=== PATIENT | female | born 1955 | race Caucasian/White ===

== ENCOUNTER → 2017-06-18 | Outpatient (CLI) | payer OTHER ==
--- NOTE | 2017-06-18 16:08 | US ---
EXAMINATION TYPE: US kidneys/renal and bladder DATE OF EXAM: 06/18/2017 COMPARISON: NONE CLINICAL HISTORY: 61-year-old female Gross Hematuria R31.9. History of renal stones TECHNIQUE: Multiple sonographic images of the kidneys and bladder were obtained. FINDINGS: Right Kidney: 10.8 x 5.2 x 5.2 cm with mild hydronephrosis and suggestion of a 1.1 cm shadowing calc ulus in the mid renal collecting system. Left Kidney: 10.0 x 4.3 x 4.5 cm without hydronephrosis. Limited visualization of the lower pole due to shadowing from bowel gas. No gross abnormality of the urinary bladder. The right ureteral jet is smaller than the left. IMPRESSION: 1. Mild hydronephrosis on the right may be secondary to a 1.1 cm calculus in the mid renal collecting system. The right ureteral jet is smaller than the left. 2. No hydronephrosis on the left.
== END | disposition home or self-care (01) ==
LOC: RADUSWWP 15:07
PROVIDERS: ATTEND Urology
DX: N13.30 Unspecified hydronephrosis (principal); Z96.0 Presence of urogenital implants
CPT/HCPCS: 76770

== ENCOUNTER → 2017-06-28 | Outpatient (CLI) | payer OTHER ==
--- NOTE | 2017-06-28 14:19 | CT ---
EXAMINATION TYPE: CT abdomen wo con DATE OF EXAM: 06/28/2017 COMPARISON: NONE HISTORY: Hematuria CT DLP: 454 mGycm Automated exposure control for dose reduction was used. TECHNIQUE: Helical acquisition of images was performed from the lung bases through the top of iliac crest to include entire abdomen. Lack of intravenous contrast limits evaluation of the solid viscera. Lack of oral contrast limits evaluation of the hollow viscera. CONTRAST: Performed without Oral Contrast and without IV contrast. FINDINGS: LUNG BASES: No significant abnormality is appreciated. LIVER/GB: Numerous low-density hepatic cysts are scattered throughout the hepatic parenchyma with the largest seen in the left lobe in segment 2 measuring 1.8 x 1.7 cm. Numerous of these are able to be characterized as hepatic cysts, however the subcentimeter lesions are too small to accurately charact erize. PANCREAS: No significant abnormality is seen. SPLEEN: No significant abnormality is seen. ADRENALS: No significant abnormality is seen. KIDNEYS: There is an obstructing calculus at the right ureteropelvic junction measuring 1.3 x 0.7 cm creating moderate right hydronephrosis. Calcification is seen within an inferior major calyx measurin g approximately 0.8 cm as well as punctate nonobstructing calculus at the mid pole of the right kidne y measuring 2 mm. Fat stranding is present around the right proximal ureter and mid pole calyces and may represent calyceal rupture. 6 mm right renal cyst is identified as well as scattered areas of hypoattenuation within the right re nal parenchyma that are subcentimeter and too small to accurately characterize. Additionally within t he posterior left superior pole there is a fluid attenuated 1.1 cm cyst. 2 punctate (1 to 2 mm) left lower pole renal calculi are seen as well as upper pole 4 mm and 2 mm calculi. Exophytic left upper p ole approximately 8 mm renal cyst is also seen. BOWEL: The appendix is partially visualized and within normal limits of size. LYMPH NODES: No significant abnormality is appreciated. OSSEOUS STRUCTURES: Mild to moderate degenerative changes of the visualized thoracolumbar spine are d isplayed as intervertebral disc space narrowing, vacuum disc disease, endplate sclerosis, facet arthr opathy and anterior osteophytes. At least large broad-based disc bulge if not disc herniation is seen at L4-L5 creating at least mild spinal canal stenosis. Slight levoscoliotic curvature is seen of the lumbar spine. FREE AIR: No free air is visualized. IMPRESSION: 1. OBSTRUCTING CALCULUS AT THE RIGHT URETEROPELVIC JUNCTION MEASURING 1.3 X 0.7 CM CREATING MODERATE RIGHT HYDRONEPHROSIS WITH FAT STRANDING SURROUNDING THE CENTRAL MAJOR AND MINOR CALYCES, POSSIBLY REL ATING TO CALYCEAL RUPTURE FROM INCREASED PRESSURE. 2. BILATERAL NONOBSTRUCTING RENAL CALCULI, SIMPLE RENAL CYSTS, AND RENAL LESIONS THAT ARE TOO SMALL T O ACCURATELY CHARACTERIZE. 3. NUMEROUS HEPATIC CYSTS AND SMALLER SUBCENTIMETER HEPATIC LESIONS THAT ARE TOO SMALL TO ACCURATELY CHARACTERIZE. 4. MILD TO MODERATE DEGENERATIVE CHANGES OF THE THORACOLUMBAR SPINE WITH AT LEAST BROAD-BASED DISC BU LGE AND POSSIBLE DISC HERNIATION AT L4-L5 CREATING AT LEAST MILD SPINAL CANAL STENOSIS. MRI COULD BE PERFORMED OF THE LUMBAR SPINE IF CLINICALLY INDICATED FOR FURTHER EVALUATION. A Kay message has been communicated to Frank Batres MD via the [email or web address] system on 06/28/2017 2:17 PM, Message ID [id number].
== END | disposition home or self-care (01) ==
LOC: RADCTMAIN 13:40
PROVIDERS: ATTEND Urology
DX: N13.2 Hydronephrosis with renal and ureteral calculous obstruction (principal); N28.1 Cyst of kidney, acquired; K76.89 Other specified diseases of liver; Z88.1 Allergy status to other antibiotic agents
CPT/HCPCS: 74150

== ENCOUNTER → 2017-08-16 | Outpatient (CLI) | payer OTHER ==
--- NOTE | 2017-08-17 08:49 | XR ---
Scoliosis survey HISTORY: Scoliosis, low back pain 2 views of the thoracic lumbar spine submitted on a total of [address] abdomen Bone mineralization is reduced. Loss of disc height present at the intervertebral levels L2-3, L3-4, L4-5, there is associated vacuum phenomenon and endplate sclerosis, multilevel spondylosis. Sclerosis present in the posterior elements. Thoracic and lumbar vertebral bodies show preserved height and al ignment. There is a levoscoliosis centered at L2 corresponding to approximately 11 degrees convex lef t. Thoracic spinal curvature is convex right centered at approximately T10 also corresponding to appr oximately 11 degrees. The heart may be enlarged. There is an oval calcification in the right paraspinal location at approxi mately the L4 level measuring 15 mm representing a right-sided renal pelvic stone. IMPRESSION: S-shaped thoracic lumbar scoliosis. Degenerative disc disease and facet arthropathy. Righ t-sided nephrolithiasis. Cardiomegaly.
== END | disposition home or self-care (01) ==
LOC: RADXRYALE 15:48
PROVIDERS: ATTEND Nurse Practitioner Family
DX: M41.9 Scoliosis, unspecified (principal); M51.35 Other intervertebral disc degeneration, thoracolumbar region; M46.85 Other specified inflammatory spondylopathies, thoracolumbar region
CPT/HCPCS: 72082

== ENCOUNTER → 2017-08-30 | Outpatient (CLI) | payer OTHER | END | disposition home or self-care (01) | LOC: LABPAT 14:18 | PROVIDERS: ATTEND Orthopaedic Surgery | DX: Z01.812 Encounter for preprocedural laboratory examination (principal) | CPT/HCPCS: 87070 ==

== ENCOUNTER → 2017-12-12 | Outpatient (CLI) | payer OTHER | END | disposition home or self-care (01) | LOC: LABPAT 13:50 | PROVIDERS: ATTEND Orthopaedic Surgery | DX: Z01.812 Encounter for preprocedural laboratory examination (principal) | CPT/HCPCS: 87070 ==

== ENCOUNTER → 2017-12-17 | Outpatient (CLI) | payer OTHER ==
[2017-12-17 12:03] LABS: HCT 36.1 % (34.0-46.0); HGB 11.3 gm/dL (11.4-16.0); Hypochromasia Slight; MCHC 31.3 g/dL (31.0-37.0); Mean Platelet Volume 7.5; Platelet Count 342 k/uL (150-450); RBC 4.35 m/uL (3.80-5.40); RDW 14.8 % (11.5-15.5); WBC 6.3 k/uL (3.8-10.6)
[2017-12-17 12:08] LABS: Appearance,Urine Cloudy (Clear); Bacteria,Urine Occasional /hpf; Bilirubin,Urine Negative (Negative); Blood,Urine Negative (Negative); Color,Urine Yellow; Glucose,Urine (UA) Negative (Negative); Ketones,Urine Negative (Negative); Leukocyte Esterase,Urine Small (Negative); Mucus,Urine Occasional /hpf; Nitrite,Urine Negative (Negative); Protein,Urine Trace (Negative); RBC,Urine 7 /hpf (0-5); Specific Gravity,Urine 1.021 (1.001-1.035); Squamous Epithelial Cell,Urine 12 /hpf (0-4); Urobilinogen,Urine <2.0 mg/dL (<2.0); WBC,Urine 11 /hpf (0-5)
[2017-12-17 12:12] LABS: Partial Thromboplastin Time 24.8 sec (22.0-30.0); Prothrombin Time 10.1 sec (9.0-12.0)
[2017-12-17 12:18] LABS: ALT 25 U/L (9-52); AST 27 U/L (14-36); Albumin 4.8 g/dL (3.5-5.0); Alkaline Phosphatase 97 U/L (38-126); Anion Gap 13 mmol/L; Blood Urea Nitrogen 16 mg/dL (7-17); Calcium 9.6 mg/dL (8.4-10.2); Carbon Dioxide 24 mmol/L (22-30); Chloride 106 mmol/L (98-107); Glucose 100 mg/dL (74-99); Potassium 4.1 mmol/L (3.5-5.1); Sodium 143 mmol/L (137-145); Total Bilirubin 0.7 mg/dL (0.2-1.3); Total Protein 7.8 g/dL (6.3-8.2)
== END | disposition home or self-care (01) ==
LOC: LABPAT 11:22
PROVIDERS: ATTEND Orthopaedic Surgery
DX: Z01.812 Encounter for preprocedural laboratory examination (principal)
CPT/HCPCS: 36415; 80053; 81001; 85027; 85610; 85730

== ENCOUNTER → 2017-12-17 | Outpatient (CLI) | payer OTHER ==
[2017-12-17 15:39] LABS: T4, Free (Free Thyroxine) 1.57 ng/dL (0.78-2.19)
== END | disposition home or self-care (01) ==
LOC: LABWHC1 11:20
PROVIDERS: ATTEND Nurse Practitioner Family
DX: E03.9 Hypothyroidism, unspecified (principal)
CPT/HCPCS: 36415; 84439; 84443

== ENCOUNTER 2017-12-25 05:47 | Inpatient (IN) | payer OTHER ==
[2017-12-17 10:11] VITALS: BMI 23.1
[~2017-12-25 05:47] MED LIST: ACETAMINOPHEN TAB 500 MG TAB PO ONE; DEXAMETHASONE SOD PHOSPHATE 10 MG/ML 1 ML VIAL IV ONE; LIDOCAINE 1% 20 ML VIAL (10MG/ML) FOR IV START INTRADERMA PRN; MELOXICAM 7.5 MG TAB PO ONE; MIDAZOLAM 2 MG/2 ML VIAL IV PRN; ONDANSETRON 4 MG/2 ML VIAL IVP ONE; ROPIVACAINE 246.25 MG, EPINEPHrine 0.5 MG, KETOROLAC 30 MG, cloNIDine HCL/PF 80 MCG, WA... MISCELLANE ONE; SCOPOLAMINE 1.5MG/72HR PATCH TRANSDERM ONE; TRANEXAMIC ACID 1,000 MG in SODIUM CHLORIDE 0.9% 50 ML IVPB ONE; ceFAZolin IN SWFI 2 GM/20 ML SYRINGE IVP ONE
[2017-12-25] MEDS: LACTATED RINGERS 1,000 ML IV SCH (06:54)
[2017-12-25] MEDS ORDERED: SODIUM CHLORIDE 0.9% 100 ML BAG ONE (06:59)
[2017-12-25] MEDS ORDERED: MIDAZOLAM 2 MG/2 ML VIAL ONE (06:59)
[2017-12-25] MEDS ORDERED: ceFAZolin 3,000 MG in SODIUM CHLORIDE 0.9% IRRIGATIO 3,000 ML IRRIGATION ONE (06:59)
[2017-12-25] MEDS ORDERED: GLYCOPYRROLATE 0.2 MG/ML 2 ML VIAL ONE (06:59)
[2017-12-25] MEDS ORDERED: TRANEXAMIC ACID 1,000 MG/10 ML VIAL ONE (06:59)
[2017-12-25] MEDS ORDERED: SUCCINYLCHOLINE CHLORIDE 100 MG/5 ML SYR IV ONE (06:59)
[2017-12-25] MEDS ORDERED: NEOSTIGMINE 1 MG/ML 10 ML VIAL ONE (06:59)
[2017-12-25] MEDS ORDERED: fentaNYL (PF) 50 MCG/ML 2 ML AMP ONE (06:59)
[2017-12-25] MEDS ORDERED: PROPOFOL 10 MG/ML 20 ML VIAL IV ONE (06:59)
[2017-12-25] MEDS ORDERED: LIDOCAINE 1% INJ 10MG/ML (20 ML MDV) ONE (06:59)
[2017-12-25] MEDS ORDERED: ROCURONIUM BROMIDE 10 MG/ML 10 ML VIAL IV ONE (06:59)
[2017-12-25] MEDS ORDERED: ONDANSETRON 4 MG/2 ML VIAL IVP PRN (07:01)
[2017-12-25] MEDS ORDERED: NALOXONE 0.4 MG/ML 1 ML VIAL IV PRN (07:01)
[2017-12-25] MEDS ORDERED: DIAZEPAM 5 MG TAB PO PRN ×2 (07:01)
[2017-12-25] MEDS ORDERED: MAGNESIUM HYDROXIDE 2,400 MG/10 ML CUP PO PRN (07:01)
[2017-12-25] MEDS ORDERED: MORPHINE SULFATE/PF 10MG/10ML VL IVP PRN ×3 (07:01)
[2017-12-25] MEDS ORDERED: HYDROcodone/APAP 5-325MG 1 EACH TAB PO PRN (07:01)
[2017-12-25] MEDS ORDERED: hydrOXYzine PAMOATE 25 MG CAP PO PRN (07:01)
--- NOTE | 2017-12-25 08:28 | P.OP ---
Date of Procedure: 12/25/17 Preoperative Diagnosis: Severe osteoarthritis right hip Postoperative Diagnosis: Severe osteoarthritis right hip Procedure(s) Performed: Right total hip arthroplasty with a direct anterior approach Implants: Das and nephew Polarstem size 2 standard Das [employer] Nephew R3, 3 hole acetabular shell, 48 mm Das [employer] Nephew reflection 6.5 mm cancellus screw, 20 mm 2 Das [employer] Nephew R3, XLPE 20 acetabular liner Das & Nephew Oxinium femoral head 32 m, +0 All components were press-fit. The articulation is Oxinium on polyethylene. Anesthesia: spinal Surgeon: Marquez Grewal Pail Tester #1: Octavia Liang Estimated Blood Loss (ml): 200 (66 mL returned with Cell Saver) Pathology: other (Femoral head) Condition: stable Disposition: PACU Indications for Procedure: After failure of conservative treatment we discussed the surgical and nonsurgical treatment options at length. Patient wishes to proceed with a total hip arthroplasty with a direct anterior approach. Complications specific to this procedure were discussed at length, including but not limited to infection, leg length discrepancy, dislocation, and nerve injury. Patient is aware of all these complications and informed consent was obtained Operative Findings: The operative findings are consistent with severe osteoarthritis of the right hip Description of Procedure: Patient was seen and evaluated in the preoperative area, consent was reviewed, and the surgical site was marked with a skin marker. Patient was then brought to the operating room and given prophylactic antibiotics intravenously. 1 g of Tranexamic acid was also given. A spinal anesthetic was administered by the anesthesia department. The patient was then placed on the [place] table with the bony prominences well-padded. The hip area was then prepped and draped in usual sterile fashion. A universal timeout was then performed, which confirmed the patient's name, surgical site, ALLERGIES, and procedure being performed. Next the incision site was located at 1 cm distal and 1 cm lateral to the anterior superior iliac spine. The skin and subcutaneous tissues were sharply incised. Incision was carefully dissected down to the fascia overlying the tensor fascia judy muscle. This fascia was then incised in line with the incision. Next, using blunt finger dissection, the tensor fascia judy muscle was dissected off its investing fascia. The muscle was then carefully retracted laterally with a cobra retractor over the lateral neck of the femur. Next, the circumflex vessels were identified and cauterized using the AquaMantis device. The anterior hip capsule was then exposed. The capsule was then opened and an inverted T fashion. Cobra retractors were then placed intracapsularly. The proximal femur was then visualized. The femoral neck was then osteotomized appropriate level above the lesser trochanter. Small amount of traction was placed with the [place] table. A small wedge of bone was then removed from the remaining femoral head. Next, using a corkscrew femoral head was easily removed from the acetabulum. On gross visual inspection, the femoral head had complete loss of articular cartilage in multiple periarticular osteophytes. Attention was then turned to the acetabulum. the acetabulum was exposed and any remaining labrum was excised. Sequential reaming of the acetabulum was performed using fluoroscopic guidance. When the appropriate size was reached, a trial was then placed. The position and fit of the trial was checked with fluoroscopy. The trial was then removed. Then, using fluoroscopic guidance, the final implant was impacted at 20 of anteversion and 40 of abduction, and fully seated in the acetabulum. 2 screws were then placed in the acetabulum. Again fluoroscopy was used to check position of the screws. Next, the liner was then impacted, with a 20 elevated liner located in the anterior superior quadrant. Component locking was confirmed. Attention was then directed to the femur. With the aid of the [place] table, the femur was externally rotated to approximately 130, extended, and abducted under the opposite leg. A side hook was then placed under the proximal femur, and the side hook elevator was used to elevate the proximal femur. Retractors were then placed. A capsular release was performed, as well as a release of the conjoined tendon, which afforded excellent visualization of the proximal femur. Next, a box osteotome was used to lateralize the proximal femur. A hand spray operator was then used to locate the femoral canal. Sequential broaching was then performed with appropriate size which afforded excellent fixation in the proximal femur. A trial was then placed with appropriate head and neck, and the hip was gently reduced with the aid of the [place] table. Fluoroscopy was then used to check position of the components, as well as to ensure equal leg lengths. The hip was then gently dislocated and the trials were then removed. Final implants were then impacted and the hip was again reduced. Final fluoroscopic x-rays confirmed that the components were in anatomic position, as well as equal leg lengths. The hip was also taken through range of motion, and found to be stable. The hip was then copiously irrigated with antibiotic solution with pulsatile lavage. The hip was then irrigated with Irrisept solution. The soft tissues were then injected with a ropivacaine solution, which consisted of 246.25 mg of ropivacaine, 0.5 mg of epinephrine, 30 mg of Toradol, 80 g of clonidine, and 48.45 mL of sterile water, for a total of 100 mL of fluid injected. A second dose of 1 g of Tranexamic acid was also given. the fascia was then closed with 2-0 strata fix suture. The subcutaneous tissue was closed with 3-0 Vicryl. The subcuticular tissue was closed with 3-0 strata fix suture. The skin was then closed with Dermabond glue and a sterile silver dressing. The patient was then transferred to the recovery room in stable condition. The automotive service assistant KAREN Mena was required due to the complexity of surgery, and the need for skilled surgical coder for positioning, draping, exposure, retraction, and closure of the wound.
--- NOTE | 2017-12-25 08:44 | XR ---
EXAMINATION TYPE: XR Hip Limited RT DATE OF EXAM: 12/25/2017 COMPARISON: NONE HISTORY: Postop TECHNIQUE: One view submitted. FINDINGS: There is a prosthetic hip in near anatomic alignment. There is soft tissue edema and emphysema. IMPRESSION: 1. Postoperative change. Appears in near-anatomic alignment.
[2017-12-25] MEDS ORDERED: fentaNYL (PF) 50 MCG/ML 2 ML AMP IVP ONE ×4 (08:55→10:59)
[2017-12-25] MEDS ORDERED: MEPERIDINE 50 MG/ML SYRINGE IVP ONE ×2 (09:14→09:19)
--- NOTE | 2017-12-25 09:18 | XR ---
EXAMINATION TYPE: XR Hip Limited RT DATE OF EXAM: 12/25/2017 COMPARISON: NONE HISTORY: Postop hip surgery TECHNIQUE: One view submitted. FINDINGS: There is a prosthetic hip in near anatomic alignment. There is soft tissue edema and emphysema. IMPRESSION: 1. Postoperative change. Appears in near-anatomic alignment.
[2017-12-25] MEDS ORDERED: ONDANSETRON 4 MG/2 ML VIAL IVP ONE (10:54)
[2017-12-25] MEDS: SODIUM CHLORIDE 0.9% 1,000 ML IV SCH ×2 (17:08→23:49)
[2017-12-25] MEDS: ASPIRIN 325 MG TAB PO SCH ×2 (17:09→20:22)
[2017-12-25] MEDS: HYDROcodone/APAP 5-325MG 1 EACH TAB PO PRN (17:13)
[2017-12-25] MEDS: ceFAZolin IN SWFI 2 GM/20 ML SYRINGE IVP SCH ×2 (17:14→23:50)
--- NOTE | 2017-12-25 18:27 | FL ---
Fluoroscopy HISTORY: Right hip arthroplasty 45 seconds fluoroscopy time supplied to the referring clinician. 2 intraoperative C-arm images docum ent the procedure. See dictated report from orthopedic surgery.
[2017-12-25] MEDS: SENNOSIDES-DOCUSATE SODIUM 1 EACH TAB PO SCH (20:22)
[2017-12-25] MEDS: CITALOPRAM HYDROBROMIDE 20 MG TAB PO SCH (22:35)
[2017-12-26] MEDS: HYDROcodone/APAP 5-325MG 1 EACH TAB PO PRN ×4 (02:53→22:26)
[2017-12-26] MEDS: LACTATED RINGERS 1,000 ML IV SCH (06:13)
[2017-12-26] MEDS: LEVOTHYROXINE 75 MCG TAB PO SCH (07:03)
[2017-12-26 07:52] LABS: Basophils % (A) 0 %; Eosinophils % (A) 0 %; HCT 26.6 % (34.0-46.0); Lymphocytes # (A) 1.8 k/uL (1.0-4.8); Lymphocytes % (A) 22 %; MCH 26.3 pg (25.0-35.0); MCHC 32.3 g/dL (31.0-37.0); MCV 81.4 fL (80.0-100.0); Mean Platelet Volume 7.4; Monocytes # (A) 0.8 k/uL (0-1.0); Monocytes % (A) 10 %; Neutrophils # (A) 5.5 k/uL (1.3-7.7); Neutrophils % (A) 66 %; Platelet Count 246 k/uL (150-450); RBC 3.27 m/uL (3.80-5.40); RDW 15.5 % (11.5-15.5); WBC 8.3 k/uL (3.8-10.6)
[2017-12-26 08:01] LABS: HGB 8.6 gm/dL (11.4-16.0)
[2017-12-26] MEDS: ASPIRIN 325 MG TAB PO SCH ×2 (08:08→20:11)
[2017-12-26] MEDS: MELOXICAM 7.5 MG TAB PO SCH (08:09)
--- NOTE | 2017-12-26 09:40 | P.DS ---
Providers Date of admission: 12/25/17 05:47 Expected date of discharge: 12/26/17 Attending physician: Marquez Grewal Consults: 12/25/17 07:01 Consult Physician Routine Consulting Provider: Kit Oh Consult Reason/Comments: medical management Do you want consulting provider notified?: Yes Primary care physician: Antwan Lopez - Discharge Diagnosis(es) (1) Primary osteoarthritis of right hip Current Visit: Yes Status: Acute (2) S/P total hip arthroplasty Current Visit: No Status: Acute Hospital Course: This is a 62-year-old female with known history of degenerative arthritis of the right hip. The patient presents for evaluation. After discussion and consideration patient elects to proceed with total hip arthroplasty. The patient is seen preoperatively by Dr. Grewal and medically cleared for surgery by their primary care physician. Patient is admitted to [facility] on 12/25/2017 for total hip arthroplasty. The procedures performed without complication or sequelae. The patient is doing well postoperatively. Labs and vital signs are stable on day of discharge. On day of discharge patient's hip incision is healing well. There is minimal erythema. There is no drainage noted at this time. There is minimal soft tissue swelling to the hip and thigh. Patient has full foot and ankle motion without difficulty or pain. Neurovascular status to the right lower extremity is intact. Patient is discharged home in good condition. Please see med rec for accurate list of home medications. Plan - Discharge Summary Discharge Rx Participant: Yes New Discharge Prescriptions: New Aspirin 325 mg PO BID #60 tab Sennosides [Senokot] 1 tab PO BID #60 tablet Ondansetron Odt [Zofran Odt] 1 - 2 tab PO Q8HR PRN #21 tab PRN Reason: Nausea HYDROcodone/APAP 5-325MG [Uvalda 5-325] 1 - 2 tab PO Q4-6H PRN #90 tab PRN Reason: Pain No Action Citalopram Hydrobromide [CeleXA] 20 mg PO HS Levothyroxine Sodium [Synthroid] 75 mcg PO DAILY Diclofenac Sodium [Voltaren] 75 mg PO BID Discharge Medication List Citalopram Hydrobromide [CeleXA] 20 mg PO HS 09/06/17 [History] Diclofenac Sodium [Voltaren] 75 mg PO BID 09/06/17 [History] Levothyroxine Sodium [Synthroid] 75 mcg PO DAILY 09/06/17 [History] Aspirin 325 mg PO BID #60 tab 12/26/17 [Rx] HYDROcodone/APAP 5-325MG [Uvalda 5-325] 1 - 2 tab PO Q4-6H PRN #90 tab 12/26/17 [ Rx] Ondansetron Odt [Zofran Odt] 1 - 2 tab PO Q8HR PRN #21 tab 12/26/17 [Rx] Sennosides [Senokot] 1 tab PO BID #60 tablet 12/26/17 [Rx] Follow up Appointment(s)/Referral(s): Antwan Lopez MD [Primary Care Provider] - 1 Week Marquez Grewal DO [Doctor of Osteopathic Medicine] - 2 Weeks Activity/Diet/Wound Care/Special Instructions: Weightbearing as tolerated with walker Leave dressing intact. Dressing may be removed by home care nurse in 10-14 days. May shower with dressing on. Follow-up with [facility] in 2 weeks, please call with any questions or concerns [phone] Discharge Disposition: HOME WITH HOME HEALTH SERVICES
[2017-12-26] MEDS: SODIUM CHLORIDE 0.9% 1,000 ML IV SCH (11:06)
--- NOTE | 2017-12-26 12:41 | CONS ---
CONSULTATION DATE OF SERVICE: 12/26/2017 REASON FOR CONSULTATION: Medical management requested by Dr. Grewal. CONSULTATION: This is a very pleasant 62-year-old patient of Dr. Lopez. The patient has undergone a right total hip arthroplasty. The pain is reasonably controlled. No nausea, vomiting. Did tolerate her breakfast. Did work with physical therapy. Chronic stable medical conditions include osteoarthritis, hypothyroid, kidney stones, anxiety. REVIEW OF SYSTEMS: CONSTITUTIONAL: None. HEENT: None. RESPIRATORY: None. CARDIOVASCULAR: None. GASTROINTESTINAL: None. GENITOURINARY: None. MUSCULOSKELETAL: Arthritic pain in the joints. DERMATOLOGICAL: None. HEMATOLOGIC: None. LYMPHATIC: None. PSYCHIATRY: Some anxiety. NEUROLOGICAL: None. PAST MEDICAL HISTORY: Past medical history of anxiety, kidney stones, hypothyroid, osteoarthritis. PAST SURGICAL HISTORY: Lithotripsy, frozen section of cervical cancer, dental procedures, left total hip arthroplasty. FAMILY HISTORY: Family history of lung and stomach cancer. HOME MEDICATIONS: 1. Senokot 1 tablet p.o. b.i.d. 2. Zofran 1 to 2 tablets q.8 p.r.n. 3. Synthroid 75 mcg p.o. daily. 4. Poteet 5 one to two tablets q.4 p.r.n. 5. Voltaren 75 p.o. b.i.d. 6. Celexa 20 mg q.h.s. 7. Aspirin for DVT prophylaxis, getting. ALLERGIES: LEVAQUIN and MORPHINE. PHYSICAL EXAMINATION: On examination, temperature 97.2, pulse 72, respirations 16, blood pressure 120/68, pulse ox 97% on room air. GENERAL APPEARANCE: Average built, sitting up on a chair, comfortable. EYES: Pupils equal. Conjunctivae normal. HENT: External appearance of nose and ears normal. Oral cavity normal. NECK: JVD not raised. Mass not palpable. RESPIRATORY: Effort normal. Lungs are clear. CARDIOVASCULAR: First and second sounds normal. No edema. ABDOMEN: Soft, nontender. Liver and spleen not palpable. LYMPHATIC: No lymph nodes palpable in neck or axillae. PSYCHIATRY: Alert and oriented x3. Mood and affect slightly anxious appearing. NEUROLOGICAL: Pupils equal. Cranial nerves grossly intact. Power and sensation grossly intact. MUSCULOSKELETAL: The patient has got a dressing over the operative site. INVESTIGATIONS: White count 8.3, hemoglobin 8.6. ASSESSMENT: 1. Right total hip arthroplasty. 2. Primary osteoarthritis of multiple joints. 3. Hypothyroid. 4. Anxiety, not otherwise specified. PLAN: The patient is doing well. Home medications are resumed. For DVT prophylaxis Dr. Grewal has her on aspirin. Pain is controlled. Care was discussed with the patient. Thank you Dr. Grewal. GILA / NYASIAN: [id number] /
[2017-12-26] MEDS ORDERED: HYDROmorphone 2 MG TAB PO PRN ×2 (15:03→15:04)
[2017-12-26] MEDS ORDERED: HYDROmorphone 4 MG TABLET PO PRN (15:04)
[2017-12-26] MEDS: CITALOPRAM HYDROBROMIDE 20 MG TAB PO SCH (20:11)
[2017-12-26] MEDS: SENNOSIDES-DOCUSATE SODIUM 1 EACH TAB PO SCH (20:11)
[2017-12-27] MEDS: SODIUM CHLORIDE 0.9% 1,000 ML IV SCH ×2 (03:52→08:01)
[2017-12-27] MEDS: HYDROcodone/APAP 5-325MG 1 EACH TAB PO PRN ×2 (06:43→12:07)
[2017-12-27] MEDS: ASPIRIN 325 MG TAB PO SCH (08:00)
[2017-12-27] MEDS: MELOXICAM 7.5 MG TAB PO SCH (08:00)
[2017-12-27] MEDS: LEVOTHYROXINE 75 MCG TAB PO SCH (08:00)
[2017-12-27 14:46] VITALS: BP 144/65; PULSE 86; RESP 20; TEMP 98.6
--- NOTE | 2017-12-28 07:37 | PN ---
PROGRESS NOTE DATE OF SERVICE: 12/27/2017 PRESENTING COMPLAINT: Right hip surgery. INTERVAL HISTORY: Patient is status post right hip surgery. Pain is well controlled. Been out of bed. No nausea, vomiting. Worked with physical therapy. REVIEW OF SYSTEMS: Review of systems done for constitutional, cardiovascular, GI, pulmonary; relevant findings as above. MEDICATIONS: Current medications are reviewed. PHYSICAL EXAMINATION: On examination, temperature 97, pulse 84, respirations 16, blood pressure 125/71, pulse ox 95% on room air. GENERAL APPEARANCE: Sitting up in a chair, comfortable. EYES: Pupils equal. Conjunctivae normal. HENT: External appearance of nose and ears normal. Oral cavity normal. NECK: JVD not raised. Mass not palpable. RESPIRATORY: Effort normal. Lungs are clear. CARDIOVASCULAR: First and second sounds normal. No edema. ABDOMEN: Soft, nontender. Liver and spleen not palpable. PSYCHIATRY: Alert and oriented x3. Mood and affect normal. INVESTIGATIONS: Hemoglobin 8.6. ASSESSMENT: 1. Right total hip arthroplasty. 2. Primary osteoarthritis multiple joints. 3. Hypothyroid. 4. Anxiety, not otherwise specified. PLAN: Care was discussed with the patient. The patient is doing clinically well. Should follow up with the family doctor. MMODL / IJN: [id number] /
== END 2017-12-27 15:20 | disposition home health service (06) | DRG 470 ==
LOC: 2ORMAIN 05:47 → 3SUR 16:13
PROVIDERS: ADMIT Orthopaedic Surgery; ATTEND Orthopaedic Surgery
PROC: 0SR906A Replacement of Right Hip Joint with Oxidized Zirconium on Polyethylene Synthetic Substitute, Uncemented, Open Approach (ICD-10-PCS; principal; 2017-12-25 07:00)
DX: M16.11 Unilateral primary osteoarthritis, right hip (principal); Z96.641 Presence of right artificial hip joint; E03.9 Hypothyroidism, unspecified; F41.9 Anxiety disorder, unspecified; N20.0 Calculus of kidney; Z87.442 Personal history of urinary calculi; Z85.41 Personal history of malignant neoplasm of cervix uteri; Z79.899 Other long term (current) drug therapy; Z88.1 Allergy status to other antibiotic agents; Z88.5 Allergy status to narcotic agent
CPT/HCPCS: 73501; 85025; 86850; 86891; 86900; 86901; 88300

== ENCOUNTER → 2018-05-22 | Outpatient (CLI) | payer OTHER ==
--- NOTE | 2018-05-23 08:39 | MR ---
EXAMINATION TYPE: MR lumbar spine wo con DATE OF EXAM: 05/22/2018 COMPARISON: CT abdomen June 28, 2017 HISTORY: Low back pain per order. Back pain for 9 years going into right buttocks and outer thigh. TECHNIQUE: Multiplanar, multisequence imaging of the lumbar spine is performed without IV contrast. FINDINGS: Survey images redemonstrate dextroconvex positioning in the mid to lower lumbar spine which correlate with CT. There is straightening of lumbar spine on sagittal images redemonstrated. Sagitta l images of the lumbar spine show vertebral body heights to remain satisfactory. Multilevel disc urbano ccation with multilevel moderate to advanced disc space narrowing most prominent L2-L3 and L4-L5 leve ls is redemonstrated. Posterior disc herniations L2-L3 through L4-L5 levels is noted on sagittal imag es. The conus medullaris is normal in position and signal ending mid L1 level. There are Modic type I degenerative changes left L2-L3 level with diminished T1 and increased T2 signal. There is mild to m oderate multilevel anterior spurring redemonstrated. Axial images at the T12-L1 level shows mild broad disc bulge with tiny left paracentral disc protrusi on mildly effacing anterior thecal sac iodine axial image 29, bilateral neural foramina are patent. Axial images at the L1-L2 level are felt within normal limits. Axial images at the L2-L3 level shows moderate broad disc bulge with left paracentral/foraminal disc and right foraminal disc protrusion components. There is effacement of the anterior thecal sac. There is mild to moderate right-sided anterior inferior neural foraminal narrowing. Left-sided neural fora men is patent. Mild bilateral facet arthropathy at this level is present. Axial images at the L3-L4 level show broad disc bulge with central disc protrusion component. There i s effacement of the anterior thecal sac and mild bilateral anterior inferior neural foraminal narrowi ng. Mild facet arthropathy bilaterally at this level is present. Axial images at the L4-L5 level show mild to moderate facet degenerative changes and ligamentum flavu m hypertrophy with mild effacement the posterior lateral thecal sac. There is moderate broad disc bul ge mildly effacing anterior thecal sac. There is mild bilateral anterior inferior neural foraminal na rrowing at this level identified. Axial images at the L5-S1 level show mild facet degenerative changes bilaterally. Spinal canal is pre served. Bilateral neural foramina are patent. A few small simple appearing thin-walled cysts are scattered throughout the visualized liver. There i s 1.3 cm simple appearing cyst centrally in the right kidney axial image 22. Right-sided nephrolithia sis is seen better on CT versus MRI. IMPRESSION: Loss of normal lumbar lordosis with multilevel degenerative changes most prominent mid to lower lumbar levels as detailed above.
== END | disposition home or self-care (01) ==
LOC: RADMRIMAIN 10:46
PROVIDERS: ATTEND Psychiatry & Neurology Neurology
DX: M47.817 Spondylosis without myelopathy or radiculopathy, lumbosacral region (principal); M40.46 Postural lordosis, lumbar region; Z88.1 Allergy status to other antibiotic agents
CPT/HCPCS: 72148

== ENCOUNTER → 2023-08-02 | Outpatient (CLI) | payer MEDICARE, OTHER ==
--- NOTE | 2023-08-02 14:16 | CT ---
EXAMINATION TYPE: CT abdomen pelvis wo con DATE OF EXAM: 08/02/2023 COMPARISON: 06/28/2017 INDICATION: Gross hematuria, Right calculus kidney, hydronephrosis DLP: 626 mGycm, Automated exposure control for dose reduction was used. CONTRAST: 0 mL of Isovue 300. Study performed without Oral Contrast TECHNIQUE: Axial images were obtained from above the diaphragm to the pubic rami in the axial plane a t 5 mm thick sections. Reconstructed images are reviewed on the computer in the coronal plane. FINDINGS: Limited CT sections are obtained the lung bases. The lung bases are clear. CT ABDOMEN: Liver: Multiple hepatic cysts are present. Spleen: Normal Pancreas: Normal Adrenal glands: The adrenal glands are normal. Gallbladder: Normal Kidneys: No renal masses are evident. Renal cysts on the posterior superior left kidney. There is a 0 .4 cm nonobstructing calcification superior pole left kidney. Nonobstructing mid lateral left kidney stone measures 0.5 cm. The mid to inferior pole nonobstructing renal stone measures 0.8 cm. There is a 0.3 cm nonobstructing renal stone mid to inferior pole. A large nonobstructing renal stones at the inferior pole left kidney measuring 1.3 cm. Additional punctate calcifications are adjacent There are numerous small nonobstructing renal stones within the dilated calyx at the superior pole ri ght kidney. Large obstructing renal stones at the ureteropelvic junction measures 1.8 x 1.1 cm. Multi ple nonobstructing renal stones are at the inferior pole right kidney. No hydroureter is evident. Aorta: Normal Inferior vena cava: Normal. CT PELVIS: There is limitation in the lower pelvis due to significant beam hardening artifact from bi lateral hip prostheses. Loops of bowel within the abdomen and pelvis are normal. Studies without oral contrast limiting b owel evaluation. Appendix: Normal as visualized. Urinary bladder: Normal. Genitourinary structures: Uterus appears normal. Adnexa are normal. Osseous structures: No suspicious lytic or sclerotic lesions. Degenerative disc changes are within th e lower lumbar spine IMPRESSION: 1. Obstructing 1.8 x 1.1 cm right ureteropelvic junction stone. Moderate right hydronephrosis is pre sent. 2. Numerous nonobstructing renal stones present bilaterally. These are increasing in size and number from the 2017 comparison. 3. Hepatic cysts.
== END | disposition home or self-care (01) ==
LOC: RADCTMAIN 09:23
PROVIDERS: ATTEND Urology
DX: N13.2 Hydronephrosis with renal and ureteral calculous obstruction (principal); K76.89 Other specified diseases of liver; R31.0 Gross hematuria
CPT/HCPCS: 74176

== ENCOUNTER → 2023-09-04 | Outpatient (CLI) | payer MEDICARE, OTHER ==
[2023-09-04 16:41] LABS: Appearance,Urine Clear (Clear); Bilirubin,Urine Negative (Negative); Blood,Urine Negative (Negative); Color,Urine Yellow (Yellow); Ketones,Urine Trace (Negative); Nitrite,Urine Negative (Negative); PH, Urine 5.5; Specific Gravity,Urine 1.017 (1.001-1.030); Urobilinogen,Urine 0.2 E.U./DL
[2023-09-04 16:45] LABS: Basophils # (A) 0.03 X 10*3/uL (0.00-0.10); Basophils % (A) 0.6 %; Eosinophils # (A) 0.09 X 10*3/uL (0.04-0.35); Eosinophils % (A) 1.7 %; HCT 37.4 % (37.2-46.3); HGB 11.9 g/dL (12.0-15.0); MCH 27.5 pg (27.0-32.0); MCHC 31.8 g/dL (32.0-37.0); MCV 86.6 FL (80.0-97.0); Mean Platelet Volume 10.7 FL (9.5-12.2); Monocytes # (A) 0.39 X 10*3/uL (0.20-1.00); Monocytes % (A) 7.5 %; NRBC Per 100 WBC 0 X 10*3/uL (0.00-0.01); Neutrophils # (A) 3.36 X 10*3/uL (1.80-7.70); Neutrophils % (A) 64.8 %; Platelet Count 286 X 10*3/uL (140-440); RBC 4.32 X 10*6/uL (4.10-5.20); RDW 14.6 % (11.5-14.5); WBC 5.19 X 10*3/uL (4.50-10.00)
[2023-09-04 16:51] LABS: BUN/Creat Ratio 16.43 Ratio (12.00-20.00); Blood Urea Nitrogen 11.5 mg/dL (9.0-27.0); Calcium 9.2 mg/dL (8.7-10.3); Carbon Dioxide 22.6 mmol/L (21.6-31.8); Chloride 106 mmol/L (96-109); Glucose 117 mg/dL (70-110); Sodium 142 mmol/L (135-145)
[2023-09-04 16:58] LABS: Bacteria,Urine None Seen (None Seen); Calcium Oxalate Crystals,Urine Present (None Seen)
== END | disposition home or self-care (01) ==
LOC: LABPAT 11:18
PROVIDERS: ATTEND Urology
DX: Z01.812 Encounter for preprocedural laboratory examination (principal); N20.0 Calculus of kidney; R35.0 Frequency of micturition; R31.29 Other microscopic hematuria
CPT/HCPCS: 80048; 81001; 85025; 86850; 86900; 86901; 87086

== ENCOUNTER 2023-10-09 07:09 | Day surgery (SDC) | payer MEDICARE, OTHER ==
[~2023-10-09 07:09] MED LIST changes: -ACETAMINOPHEN TAB 500 MG TAB PO ONE; -DEXAMETHASONE SOD PHOSPHATE 10 MG/ML 1 ML VIAL IV ONE; +DEXAMETHASONE SOD PHOSPHATE 4 MG/ML 1 ML VIAL IV ONE; +GENTAMICIN 120 MG in SODIUM CHLORIDE 0.9% 100 ML IVPB PRN; -LIDOCAINE 1% 20 ML VIAL (10MG/ML) FOR IV START INTRADERMA PRN; -MELOXICAM 7.5 MG TAB PO ONE; -MIDAZOLAM 2 MG/2 ML VIAL IV PRN; -ROPIVACAINE 246.25 MG, EPINEPHrine 0.5 MG, KETOROLAC 30 MG, cloNIDine HCL/PF 80 MCG, WA... MISCELLANE ONE; -SCOPOLAMINE 1.5MG/72HR PATCH TRANSDERM ONE; -TRANEXAMIC ACID 1,000 MG in SODIUM CHLORIDE 0.9% 50 ML IVPB ONE; -ceFAZolin IN SWFI 2 GM/20 ML SYRINGE IVP ONE; +fentaNYL (PF) 50 MCG/ML 2 ML AMP IV PRN
[2023-10-09] MEDS: LACTATED RINGERS 1,000 ML IV SCH ×2 (07:43→09:13)
[2023-10-09] MEDS ORDERED: ONDANSETRON 4 MG/2 ML VIAL IVP ONE (07:59)
[2023-10-09] MEDS ORDERED: DEXAMETHASONE SOD PHOSPHATE 4 MG/ML 1 ML VIAL IVP ONE (07:59)
[2023-10-09 08:04] VITALS: RESP 16
--- NOTE | 2023-10-09 08:08 | XR ---
EXAMINATION TYPE: XR KUB DATE OF EXAM: 10/09/2023 7:57 AM CLINICAL INDICATION:Female, 68 years old with history of kidney stones; [facility] COMPARISON: CT 08/02/2023 TECHNIQUE: Supine radiographic view/s of the abdomen/pelvis obtained. FINDINGS: The bowel gas pattern is nonspecific, likely nonobstructive without dilated loops of small or large b owel. Fecal material and gas are demonstrated throughout the colon and rectum. Mild/moderate stool bu rden. No gross evidence of organomegaly. No evidence of pneumoperitoneum in the limitations of supine technique. There are multiple calculi projected over both kidneys, the largest likely near the UPJ on the right measures 13 x 11 mm. Largest on the left in the lower pole is 15 x 7 mm. Multiple other smaller calcu li are also present. No definite calculi over the distal ureters or bladder. Osseous structures appear grossly intact. Moderate to severe degenerative changes of the lower lumbar spine with levoscoliosis. Bilateral total hip arthroplasties in place. IMPRESSION: Multiple bilateral renal calculi as described.
--- NOTE | 2023-10-09 08:49 | P.HPIHPCON ---
History of Present Illness H&P Date: 10/09/23 Chief Complaint: Right ureteral stone This is a 68-year-old female history of a 1.6 cm right-sided UPJ stone also evidence of significant lower pole stone burden. Option of right-sided PCNL's discussed with her, She declined. Discussed the alternative of ureteroscopy with holmium laser to address her UPJ stone. Discussed risk of surgery which include but not limited to bleeding, infection, injury to the ureter. Discussed that we'll not be able to remove the lower pole stones at the time ureteroscopy she understood all the risk and agreed to proceed Consent for Procedure: I have explained the operation/procedure to the patient, including the risks, benefits, side effects, alternative therapies (including not receiving the proposed treatment or service), the likelihood of the patient achieving his/her goals, and potential recuperation problems for the procedure/sedation/analgesia, as well as any blood products, if indicated. I also explained to the patient the risks, benefits and side effects of the alternatives, as well as the risks related to not receiving the proposed procedure, care, treatment, or services. Past Medical History Past Medical History: Cancer, Osteoarthritis (OA), Thyroid Disorder Additional Past Medical History / Comment(s): states current kidney stone, 1 episode hematuria, chronic back pain, hx of cervical ca, hx of migraines History of Any Multi-Drug Resistant Organisms: None Reported Past Surgical History: Joint Replacement Additional Past Surgical History / Comment(s): lithotripsy, has had "frozen sections x2 for cervical ca", dental procedures, bilateral hip replacement Past Anesthesia/Blood Transfusion Reactions: No Reported Reaction Smoking Status: Never smoker - Past Family History Father Family Medical History: Cancer Additional Family Medical History / Comment(s): lung, stomach Medications and Allergies Home Medications Medication Instructions Recorded Confirmed Type Diclofenac Sodium [Voltaren] 75 mg PO BID 09/06/17 10/05/23 History Levothyroxine Sodium [Synthroid] 75 mcg PO QAM 09/06/17 10/05/23 History Pregabalin [Lyrica] 75 mg PO HS 09/06/23 10/05/23 History tiZANidine [Zanaflex] 2 mg PO BID 09/06/23 10/05/23 History traMADol HCL 50 mg PO BID 09/06/23 10/05/23 History Allergies Allergy/AdvReac Type Severity Reaction Status Date / Time levofloxacin [From Levaquin] Allergy Unknown Verified 10/09/23 07:34 morphine AdvReac Unknown Verified 10/09/23 07:34 CT Dye Allergy Swelling Uncoded 10/09/23 07:34 Surgical - Exam Vital Signs Temp Pulse Resp BP Pulse Ox 97.3 F L 77 16 193/93 96 10/09/23 07:41 10/09/23 07:41 10/09/23 07:41 10/09/23 07:41 10/09/23 07:41 - General no distress, no pain - Eyes normal ocular movement, no pale - ENT normal nares, normal mucosa - Respiratory normal expansion, normal respiratory effort - Abdomen Abdomen: soft, non tender - Psychiatric oriented to time, oriented to person, oriented to place, speech is normal Assessment and Plan Assessment: OR for right-sided ureteroscopy, holmium laser lithotripsy, stone basketing and stent insertion
[2023-10-09] MEDS ORDERED: fentaNYL (PF) 50 MCG/ML 2 ML AMP ONE (09:13)
[2023-10-09] MEDS ORDERED: MIDAZOLAM 2 MG/2 ML VIAL ONE (09:13)
[2023-10-09] MEDS ORDERED: PROPOFOL 10 MG/ML 20 ML VIAL IV ONE (09:13)
[2023-10-09] MEDS ORDERED: LIDOCAINE 1% INJ 10MG/ML (20 ML MDV) ONE (09:13)
[2023-10-09] MEDS ORDERED: ePHEDrine 50 MG/ML 1 ML VIAL ONE (09:13)
[2023-10-09 11:26] VITALS: TEMP 97
--- NOTE | 2023-10-09 11:40 | P.OP ---
Date of Procedure: 10/09/23 Preoperative Diagnosis: Right ureteral stone Postoperative Diagnosis: Same Procedure(s) Performed: Cystoscopy, right ureteroscopy, holmium laser lithotripsy, stone basketing and stent insertion Implants: 6-Ecuadorean by 24 cm stent in the right ureter Anesthesia: TONYA Surgeon: Davion Escobar Estimated Blood Loss (ml): 5 Pathology: other (right ureteral stone) Condition: stable Disposition: PACU Indications for Procedure: This is a 68-year-old female history of a 1.6 cm right-sided UPJ stone also evidence of significant lower pole stone burden. Option of right-sided PCNL's discussed with her, She declined. Discussed the alternative of ureteroscopy wi th holmium laser to address her UPJ stone. Discussed risk of surgery which include but not limited to bleeding, infection, injury to the ureter. Discussed that we'll not be able to remove the lower pole stones at the time ureteroscopy she understood all the risk and agreed to proceed Operative Findings: Large right-sided UPJ stone, edema around the right ureteral wall at the site of the stone Description of Procedure: Patient brought to the operating room, general anesthesia was induced. She was prepped and draped in sterile fashion and placed in dorsal lithotomy position. Cystoscopy fitted with 21-Ecuadorean sheath was inserted per urethra, cystoscopy was performed which showed no abnormality within the bladder. Attention was then carried to the right ureteral orifice which was intubated with a sensor wire. Next under fluoroscopy 1113 Ecuadorean access sheath was passed over the wire into the proximal ureter. Next a flexible ureteroscope was inserted through the access sheath, ureteroscopy was performed which showed a large stone involving the UPJ. Next using the holmium laser the stone was dusted. Any sizable fragments were removed using the stone basket. Repeat ureteroscopy and renoscopy showed no sizable fragments or injury to the kidney or the ureter. The lower pole kidney stones were not removed. Pullback ureteroscopy was performed showed no injury to the ureter or any ureteral stone. As the ureteroscope was withdrawn, a sensor wire was passed through. Next a ureteral stent was passed over the wire, the proximal curl was visualized on fluoroscopy and the distal curl was visualized using the cystoscope
[2023-10-09 12:15] VITALS: BP 144/87; PULSE 70
--- NOTE | 2023-10-09 15:16 | FL ---
EXAMINATION TYPE: FL guidance operating room DATE OF EXAM: 10/09/2023 Comparison: CT 08/02/2023 Clinical History: 68-year-old female Cysto for Rt kidney stone Findings: Cysto right kidney stone 42 sec fluoro 0.[address] Escobar 4. Images submitted. Impression: Procedural fluoroscopy as above.
== END 2023-10-09 12:20 | disposition home or self-care (01) ==
LOC: OR 07:09
PROVIDERS: ATTEND Urology
DX: N20.1 Calculus of ureter (principal); Z87.442 Personal history of urinary calculi
CPT/HCPCS: 52356; 82365; 74018; C2625; C1769; J2250; J1100; J0690; J2405; J2001; J3010; J1580; J2704